=== PATIENT | male | born 1960 | race Caucasian/White ===

== ENCOUNTER 2020-10-24 08:58 | Outpatient (CLI) | payer OTHER ==
[2020-10-24] MEDS ORDERED: LIDOCAINE 1%, 10ML ONE (09:07)
== END 2020-10-24 23:59 | disposition home or self-care (01) ==
LOC: RAD 08:58
PROVIDERS: ATTEND Internal Medicine Hematology & Oncology
DX: D3A.026 Benign carcinoid tumor of the rectum (principal)
CPT/HCPCS: 49083; J3490

== ENCOUNTER 2020-11-19 09:24 | Outpatient (CLI) | payer OTHER ==
[2020-11-19] MEDS ORDERED: LIDOCAINE-MPF 1%, 5ML ONE ×2 (09:48)
== END 2020-11-19 23:59 | disposition home or self-care (01) ==
LOC: RAD 09:24
PROVIDERS: ATTEND Internal Medicine Hematology & Oncology
DX: R18.8 Other ascites (principal); C7A.026 Malignant carcinoid tumor of the rectum; C78.7 Secondary malignant neoplasm of liver and intrahepatic bile duct; I10 Essential (primary) hypertension; E11.9 Type 2 diabetes mellitus without complications; N40.0 Benign prostatic hyperplasia without lower urinary tract symptoms; Z79.899 Other long term (current) drug therapy
CPT/HCPCS: 49083